=== PATIENT | male | born 1945 | race Caucasian/White ===

== ENCOUNTER 2019-12-03 17:59 | Inpatient (IN) | payer OTHER ==
[~2019-12-03] VITALS: Ht 170.2 cm; Wt 80.2 kg
[2019-12-03] MEDS ORDERED: ACETAMINOPHEN 325 MG TAB PO ONE ×2 (18:18→18:30)
[2019-12-03] MEDS ORDERED: ACCU-CHEK COMFORT CURVE STRIP VI ONE (18:45)
[2019-12-03] MEDS ORDERED: SODIUM CHLORIDE 0.9% 2,000 ML IV ONE (18:45)
[2019-12-03] MEDS ORDERED: PIPERACILLIN-TAZOB 3.375GM 100 ML IV ONE (19:00)
[2019-12-03] MEDS ORDERED: VANCOMYCIN 1GM/250ML 250 ML IV ONE (19:00)
[2019-12-03 19:34] LABS: Basophils # (auto) 0 10 ^3/uL (0-0.2); Basophils % (auto) 0.4 % (0.0-2.0); Eosinophils # (auto) 0 10 ^3/uL (0-0.8); Eosinophils % (auto) 0.1 % (0.0-7.0); Hematocrit 44.6 % (41.0-53.0); Hemoglobin 14.9 g/dL (13.5-17.5); Lymphocytes # (auto) 0.3 10 ^3/uL (0.4-5.4); Lymphocytes % (auto) 2.9 % (10.0-50.0); Mean Corpuscular Hemoglobin 30.6 pg (28.0-32.0); Mean Corpuscular Hgb Conc. 33.5 g/dL (32.0-36.0); Mean Corpuscular Volume 91.4 fL (80.0-100.0); Monocytes # (auto) 0.4 10 ^3/uL (0-1.3); Monocytes % (auto) 4.4 % (0.0-12.0); Neutrophils # (auto) 8.7 10 ^3/uL (1.6-8.6); Neutrophils % (auto) 92.2 % (37.0-80.0); Nucleated Red Blood Cells % 0.1 %; Platelet Count (auto) 170 10^3/uL (140-450); Red Blood Cells 4.88 10^6/uL (4.5-5.90); Red Cell Distribution Width 13.3 % (11.8-14.3); White Blood Cell 9.4 10^3/uL (4.4-10.8)
[2019-12-03 19:51] LABS: Acetaminophen < 2.0 ug/mL (10-30); Alanine Aminotransferase 18 U/L (16-61); Albumin 2.9 g/dL (3.4-5.0); Anion Gap 7 (5-15); Blood Urea Nitrogen 20 mg/dL (7-18); Calcium 8.4 mg/dL (8.5-10.1); Carbon Dioxide 27 mmol/L (21-32); Chloride 96 mmol/L (98-107); Glucose 119 mg/dL (74-106); Potassium 4.1 mmol/L (3.5-5.1); Salicylate < 1.7 mg/dL (2.8-20.0); Sodium 130 mmol/L (136-145)
[2019-12-03 19:56] LABS: Alkaline Phosphatase 52 U/L (45-117); Aspartate Aminotransferase 24 U/L (15-37); BUN/Creatinine Ratio 12.5; Bilirubin, Total 0.9 mg/dL (0.2-1.0); GFR African American 55 mL/min; GFR Non-African American 45 mL/min; INR 1.06 (0.9-1.15); Partial Thromboplastin Time 29.3 sec (23.0-31.2)
[2019-12-03] MEDS ORDERED: MORPHINE SULF INJ 2 MG/ML SYRINGE 1ML IV PRN (21:30)
[2019-12-03] MEDS ORDERED: ACETAMINOPHEN 325 MG TAB PO PRN (21:30)
[2019-12-03] MEDS ORDERED: NITROGLYCERIN 0.4 MG SL TAB SL PRN (21:30)
[2019-12-03] MEDS ORDERED: ONDANSETRON HCL 4 MG/2 ML VIAL IV PRN (21:30)
[2019-12-03 22:35] LABS: Magnesium 2.2 mg/dL (1.6-2.6)
[2019-12-03 22:43] LABS: Lactate Dehydrogenase 299 U/L (87-241)
[2019-12-03 22:50] LABS: CRP High Sensitivity > 19.0 mg/dL (< 0.3)
[2019-12-03 23:53] LABS: Urine Bacteria FEW /hpf (None Seen); Urine Blood 2+ /uL (Negative); Urine Mucus FEW (None Seen); Urine Specific Gravity 1.018 (1.001-1.035); Urine WBC 2 /hpf (0 - 3)
[2019-12-04] VITALS (10 sets, daily range): BP systolic 95–158; BP diastolic 54–88
[2019-12-04 00:04] LABS: Alcohol, Urine < 3.0 mg/dL (0-10); Amphetamine Screen, Urine NEGATIVE (NEGATIVE); Barbiturate Scree,Urine NEGATIVE (NEGATIVE); Benzodiazephine Screen, Urine NEGATIVE (NEGATIVE); Cannabinoid Screen, Urine NEGATIVE (NEGATIVE); Cocaine Screen, Urine NEGATIVE (NEGATIVE); Opiate Scree,Urine NEGATIVE (NEGATIVE); Phencyclidine Screen, Urine NEGATIVE (NEGATIVE)
--- NOTE | 2019-12-04 00:30 | NUR ---
Telemetry admit from ER JOSÉ MIGUELCHRISTY admitted to Telemetry unit after SBAR received. Patient oriented to LJ MILTON RN primary RN, unit, room, bed, and unit policies regarding patient care and visiting hours. Patient now on continuous telemetry monitoring, tele box # 18 and telemetry reading on arrival to unit is Sinus rhythm at 86BPM. Patient placed on bedside oxygen, weighed by bedscale and encouraged to call if they need something. All questions and concerns addressed, patient verbalized understanding. Patient is alert and oriented to self, confused and very weak with shakey legs when standing up. Has a mercado catheter draining clear light guadalupe urine into drain bag. Resting in bed at this time.
--- NOTE | 2019-12-04 01:00 | NUR ---
Patient is restless and tries to get up and walk, but patient is very unstable to his feet. Will probably needs a sitter. Will let the charge nurse know.
--- NOTE | 2019-12-04 01:15 | NUR ---
Patient is with a sitter for safety precaution.
[2019-12-04] MEDS: DOXYCYCLINE 100MG/250ML 250 ML IV SCH ×3 (02:16→21:31)
[2019-12-04] MEDS ORDERED: PRA1C PO (04:11)
[2019-12-04] MEDS ORDERED: CARV3.1240 PO (04:11)
[2019-12-04] MEDS ORDERED: LISI2.5T47 PO (04:11)
[2019-12-04] MEDS ORDERED: VENL37.511 PO (04:11)
[2019-12-04] MEDS ORDERED: MELA3TAB27 PO (04:11)
[2019-12-04] MEDS ORDERED: SIMV-13 PO (04:11)
[2019-12-04] MEDS ORDERED: TERA10CA PO (04:11)
[2019-12-04 07:24] LABS: Basophils # (auto) 0 10 ^3/uL (0-0.2); Basophils % (auto) 0.3 % (0.0-2.0); Eosinophils # (auto) 0 10 ^3/uL (0-0.8); Hematocrit 48.1 % (41.0-53.0); Hemoglobin 16.3 g/dL (13.5-17.5); Lymphocytes # (auto) 0.2 10 ^3/uL (0.4-5.4); Lymphocytes % (auto) 1.9 % (10.0-50.0); Mean Corpuscular Hgb Conc. 33.8 g/dL (32.0-36.0); Mean Corpuscular Volume 91.8 fL (80.0-100.0); Monocytes # (auto) 0.4 10 ^3/uL (0-1.3); Neutrophils # (auto) 8.9 10 ^3/uL (1.6-8.6); Neutrophils % (auto) 93.8 % (37.0-80.0); Nucleated Red Blood Cells % 0.1 %; Platelet Count (auto) 189 10^3/uL (140-450); Red Blood Cells 5.24 10^6/uL (4.5-5.90); Red Cell Distribution Width 13.2 % (11.8-14.3); White Blood Cell 9.4 10^3/uL (4.4-10.8)
[2019-12-04 07:45] LABS: Albumin 2.8 g/dL (3.4-5.0); Calcium 8.5 mg/dL (8.5-10.1); Potassium 3.8 mmol/L (3.5-5.1)
[2019-12-04 07:46] LABS: Total Protein 7.2 g/dL (6.4-8.2)
[2019-12-04] MEDS: ZINC SULFATE 220mg CAP or TAB PO SCH (09:22)
[2019-12-04] MEDS: ASCORBIC ACID 1,000 MG TAB PO SCH (09:23)
[2019-12-04] MEDS: ENOXAPARIN SOD 40 MG/0.4 ML SYRINGE SC SCH (09:23)
[2019-12-04] MEDS: CHOLECALCIFEROL (VITD3) 2,000 UNIT CAP PO SCH (09:23)
[2019-12-04] MEDS: PANTOPRAZOLE 40 MG TAB PO SCH (09:23)
--- NOTE | 2019-12-04 12:30 | NUR ---
Patient 02 saturation on room air Patients 02 saturation on room air is 90%. Reapplied NC @ 4L, 02 at 96%.
--- NOTE | 2019-12-04 13:41 | NUR ---
Remdesivir Consent Obtained consent for Remdesivir over phone with patients spouse, Roseanne, due to patient being confused. Reviewed risks/benefits of Remdesivir and answered questions. Consent faxed to pharmacy and consent placed in patient chart.
[2019-12-04] MEDS ORDERED: DexAMETHasone SOD PHOS 10MG/1ML VIAL INJ IV ONE (15:15)
[2019-12-04] MEDS ORDERED: REMDESIVIR 200 MG in NS 210ml LOADING DOSE ADULT IV ONE (17:00)
--- NOTE | 2019-12-04 17:15 | NUR ---
Elevated Temp Patients temp is 102.8. Cooling measures initiated, and Tylenol given. Will continue to monitor.
--- NOTE | 2019-12-04 18:28 | NUR ---
Paged Hospitalist, patients temp is 102.7 after receiving Tylenol and cooling measures.
--- NOTE | 2019-12-04 18:30 | NUR ---
Paged Hospitalist, Dr Limon, informed him of patients continued temp of 102.7. Per Dr Limon, continue cooling measures, no further orders.
--- NOTE | 2019-12-04 18:55 | NUR ---
Convalescent Plasma Consent Convalescent Plasma consent has been obtained over the phone by patients , Roseanne due to patient being confused. Consent has been signed and verified by 2 RN's after speaking with Roseanne. Signed consent in patient chart.
--- NOTE | 2019-12-04 19:30 | NUR ---
Opening Shift Note Assumed care of patient, awake and alert. No S/S of distress/SOB or pain. Insructed on POC and to callfor assist PRN, will continue to monitor for changes Q1hr and PRN. Fall and safety precautions in place. Call light within reach. line service attendant at bedside for patient safety.
[2019-12-04] MEDS: ATORVASTATIN 20 MG TAB PO SCH (21:31)
[2019-12-04] MEDS: VENLAFAXINE HCL 37.5mg XR cap PO SCH (21:31)
[2019-12-04] MEDS: BUDESONIDE (INHALATION) 180 MCG IH IN SCH (22:25)
[2019-12-04] MEDS: ALBUTEROL SULF HFA 90MCG INH 200DOSE IN SCH (22:25)
[2019-12-05 05:00] VITALS: BP 108/59
[2019-12-05] MEDS: ALBUTEROL SULF HFA 90MCG INH 200DOSE IN SCH ×3 (07:37→22:00)
[2019-12-05] MEDS: BUDESONIDE (INHALATION) 180 MCG IH IN SCH ×2 (07:37→22:00)
[2019-12-05 07:40] LABS: Calcium 8.6 mg/dL (8.5-10.1); Potassium 4.4 mmol/L (3.5-5.1)
[2019-12-05 07:44] LABS: BUN/Creatinine Ratio 17.6
--- NOTE | 2019-12-05 07:45 | NUR ---
Opening shift note Assumed care of patient from NOC RN Joselyn. Patient is AOX2 no s/s of distress noted. Bed is in lowest locked position, side rails up x2,aviation safety equipment technician at bedside and call light is within reach. Updated patient on plan of care and patient verbalized understanding but reinforcement is needed. Will continue to monitor q1hr and PRN.
[2019-12-05 09:00] VITALS: BP 112/68
[2019-12-05] MEDS: DexAMETHasone SOD PHOS 10MG/1ML VIAL INJ IV SCH (11:29)
[2019-12-05] MEDS: DOXYCYCLINE 100MG/250ML 250 ML IV SCH ×2 (11:29→21:31)
[2019-12-05] MEDS: PANTOPRAZOLE 40 MG TAB PO SCH (11:37)
[2019-12-05] MEDS: ASCORBIC ACID 1,000 MG TAB PO SCH (11:37)
[2019-12-05] MEDS: CHOLECALCIFEROL (VITD3) 2,000 UNIT CAP PO SCH (11:37)
[2019-12-05] MEDS: ENOXAPARIN SOD 40 MG/0.4 ML SYRINGE SC SCH (11:37)
[2019-12-05] MEDS: ZINC SULFATE 220mg CAP or TAB PO SCH (11:37)
--- NOTE | 2019-12-05 13:15 | NUR ---
Physician rounding. Dr. Barone at bedside. Updated MD on patient status. No new orders received, will continue to monitor.
[2019-12-05] MEDS ORDERED: THROAT LOZENGES(CEPASTAT) MT PRN (16:15)
[2019-12-05] MEDS: REMDESIVIR 100mg in NS 230ml DAILYx4DAYS (NO VENT) IV SCH (17:49)
--- NOTE | 2019-12-05 18:45 | NUR ---
Mel vitals pre administration 70bpm, 127/75. 15min after administration 71bpm, 126/72 post administration 121/72, 75bpm No s/s of distress or SOB noted. Will continue to monitor. Educated patient to call for assistance as needed.
--- NOTE | 2019-12-05 19:15 | NUR ---
end of shift note endorsed care to NOC MERON Zamorano. No s/s of distress noted.
--- NOTE | 2019-12-05 19:35 | NUR ---
Opening shift note Assumed care of patient. Patient is AOX3 no s/s of distress noted. Bed is in lowest locked position, side rails up x2, sitter at bedside and call light is within reach. Updated patient on plan of care and patient verbalized understanding but reinforcement is needed.
[2019-12-05] MEDS: VENLAFAXINE HCL 37.5mg XR cap PO SCH (21:31)
[2019-12-05] MEDS: ATORVASTATIN 20 MG TAB PO SCH (21:31)
[2019-12-05 22:00] VITALS: BP 144/81
[2019-12-06 04:15] VITALS: BP 134/71
[2019-12-06] MEDS: ALBUTEROL SULF HFA 90MCG INH 200DOSE IN SCH ×3 (07:27→21:31)
[2019-12-06] MEDS: BUDESONIDE (INHALATION) 180 MCG IH IN SCH ×2 (07:27→21:32)
[2019-12-06 09:00] VITALS: BP 115/71
[2019-12-06] MEDS: DexAMETHasone SOD PHOS 10MG/1ML VIAL INJ IV SCH (10:17)
[2019-12-06] MEDS: ZINC SULFATE 220mg CAP or TAB PO SCH (10:17)
[2019-12-06] MEDS: DOXYCYCLINE 100MG/250ML 250 ML IV SCH ×2 (10:17→22:10)
[2019-12-06] MEDS: ASCORBIC ACID 1,000 MG TAB PO SCH (10:17)
[2019-12-06] MEDS: PANTOPRAZOLE 40 MG TAB PO SCH (10:18)
[2019-12-06] MEDS: CHOLECALCIFEROL (VITD3) 2,000 UNIT CAP PO SCH (10:18)
[2019-12-06] MEDS: ENOXAPARIN SOD 40 MG/0.4 ML SYRINGE SC SCH (10:18)
[2019-12-06 13:00] VITALS: BP 113/63
--- NOTE | 2019-12-06 14:48 | NUR ---
Nutrition Assessment Notes Please refer to link for full assessment notes. Est Energy needs: 0519-1723 kcals (20-23 kcal/kgBW) Est Protein needs: 82-90 gms/day (1.0-1.1 gm/kgBW) Will continue to monitor and reassess prn. Addendum: 12/06/19 at [address] Amended: Links added.
[2019-12-06 17:00] VITALS: BP 115/66
[2019-12-06] MEDS: REMDESIVIR 100mg in NS 230ml DAILYx4DAYS (NO VENT) IV SCH (17:29)
[2019-12-06 22:00] VITALS: BP 120/68
[2019-12-06] MEDS: VENLAFAXINE HCL 37.5mg XR cap PO SCH (22:09)
[2019-12-06] MEDS: ATORVASTATIN 20 MG TAB PO SCH (22:09)
[2019-12-06] MEDS: TEMAZEPAM 15 MG CAP PO PRN (23:56)
[2019-12-07] VITALS (9 sets, daily range): BP systolic 107–132; BP diastolic 65–76
--- NOTE | 2019-12-07 01:16 | NUR ---
Patient pulled out Dupont: Patient confused and pulled out Dupont while assisting patient to sit up in the bed. Catheter of Dupont tip present. Will reassess patient for need for Dupont.
[2019-12-07] MEDS: ALBUTEROL SULF HFA 90MCG INH 200DOSE IN SCH ×4 (07:02→22:37)
[2019-12-07] MEDS: BUDESONIDE (INHALATION) 180 MCG IH IN SCH ×3 (07:03→22:38)
--- NOTE | 2019-12-07 07:10 | NUR ---
received pt on 6liters nasal cannula, spo2 86%. switched pt to 12 liters oxymizer, spo2 increased to 92%. sitter at bedside. pt continuously taking off o2. pt educated to keep oxygen on. sitter at bedside helping to keep o2 on pt.
[2019-12-07 07:38] LABS: Hematocrit 40.9 % (41.0-53.0); Mean Corpuscular Hemoglobin 30.9 pg (28.0-32.0); Mean Corpuscular Hgb Conc. 34.2 g/dL (32.0-36.0); Mean Corpuscular Volume 90.3 fL (80.0-100.0); Platelet Count (auto) 245 10^3/uL (140-450); Red Blood Cells 4.52 10^6/uL (4.5-5.90); White Blood Cell 10.9 10^3/uL (4.4-10.8)
[2019-12-07 07:51] LABS: Band Neutrophils % (manual) 0; Basophils % (manual) 0 (0.0-2.0); Blast Cells 0; Eosinophils % (manual) 0 (0-7); Metamyelocytes % 0; Myelocytes % 0; Promyelocytes % 0; Reactive Lymphocytes 0
[2019-12-07 08:02] LABS: Albumin 2.4 g/dL (3.4-5.0); BUN/Creatinine Ratio 23.7; Bilirubin, Total 0.5 mg/dL (0.2-1.0); Calcium 8.2 mg/dL (8.5-10.1); Total Protein 5.9 g/dL (6.4-8.2)
[2019-12-07 08:10] LABS: Lymphocytes % (manual) 10 (10.0-50.0); Monocytes % (manual) 3 (0-12)
[2019-12-07] MEDS: ZINC SULFATE 220mg CAP or TAB PO SCH (09:08)
[2019-12-07] MEDS: DOXYCYCLINE 100MG/250ML 250 ML IV SCH ×2 (09:08→21:34)
[2019-12-07] MEDS: ENOXAPARIN SOD 40 MG/0.4 ML SYRINGE SC SCH (09:09)
[2019-12-07] MEDS: PANTOPRAZOLE 40 MG TAB PO SCH (09:09)
[2019-12-07] MEDS: ASCORBIC ACID 1,000 MG TAB PO SCH (09:09)
[2019-12-07] MEDS: CHOLECALCIFEROL (VITD3) 2,000 UNIT CAP PO SCH (09:09)
[2019-12-07] MEDS: DexAMETHasone SOD PHOS 10MG/1ML VIAL INJ IV SCH (09:11)
[2019-12-07] MEDS ORDERED: guaiFENesin-DM 100/10mg/5ml SYR PO PRN (15:00)
--- NOTE | 2019-12-07 15:09 | NUR ---
PAGED MD SLOAN RE: PT REQUESTING COUGH MEDICINE. AWAITING CALL BACK
--- NOTE | 2019-12-07 15:13 | NUR ---
ME RETURNED PAGE. NEW ORDERS RECEIVED. WILL IMPLEMENT NEW ORDERS PER PROTOCAL
--- NOTE | 2019-12-07 16:08 | NUR ---
Opening shift note Assumed care of patient. Patient is AOX3 no s/s of distress noted. Patient currently on 11L oxymizer. Bed is in lowest locked position, side rails up x2, sitter at bedside and call light is within reach. Updated patient on plan of care and patient verbalized understanding but reinforcement is needed. Addendum: 12/07/19 at 1609 by SUBHASH DOUGLASS RN RN incorrect time: correct time 0740
[2019-12-07] MEDS: REMDESIVIR 100mg in NS 230ml DAILYx4DAYS (NO VENT) IV SCH (17:46)
--- NOTE | 2019-12-07 18:31 | NUR ---
LATE ENTRY REMDESIVIR PRE INFUSION VITAL SIGNS BP119/81 HR 66 REMDESIVIR INFUSION VITAL SIGNS BP111/56 HR 67 REMDESIVIR POST INFUSION VITAL SIGNS BP107/59 HR 61
[2019-12-07] MEDS: TEMAZEPAM 15 MG CAP PO PRN (21:34)
[2019-12-07] MEDS: VENLAFAXINE HCL 37.5mg XR cap PO SCH (21:34)
[2019-12-07] MEDS: ATORVASTATIN 20 MG TAB PO SCH (21:34)
[2019-12-08 05:01] VITALS: BP 125/68
[2019-12-08] MEDS: BUDESONIDE (INHALATION) 180 MCG IH IN SCH ×2 (06:54→23:06)
[2019-12-08] MEDS: ALBUTEROL SULF HFA 90MCG INH 200DOSE IN SCH ×3 (06:54→23:06)
--- NOTE | 2019-12-08 06:54 | NUR ---
RT NOTE: FLOW DECREASED TO 7L OXYMIZER. SPO2 STILL HOLDING 95-96%. WILL CONTINUE TO MONITOR.
--- NOTE | 2019-12-08 07:20 | NUR ---
CLOSING SHIFT NOTE ENDORSED CARE TO DAY SHIFT RN. PATIENT HAS NO S/S OF DISTRESS/SOB OR PAIN AT THIS TIME
--- NOTE | 2019-12-08 07:45 | NUR ---
Opening shift note Assumed care of patient. Patient is AOX3 no s/s of distress noted. Patient currently on 11L oxymizer. Bed is in lowest locked position, side rails up x2, sitter at bedside and call light is within reach. Updated patient on plan of care and patient verbalized understanding but reinforcement is needed.
[2019-12-08 09:00] VITALS: BP 101/74
[2019-12-08] MEDS: PANTOPRAZOLE 40 MG TAB PO SCH (11:06)
[2019-12-08] MEDS: ZINC SULFATE 220mg CAP or TAB PO SCH (11:07)
[2019-12-08] MEDS: DOXYCYCLINE 100MG/250ML 250 ML IV SCH (11:07)
[2019-12-08] MEDS: ASCORBIC ACID 1,000 MG TAB PO SCH (11:07)
[2019-12-08] MEDS: DexAMETHasone SOD PHOS 10MG/1ML VIAL INJ IV SCH (11:07)
[2019-12-08] MEDS: ENOXAPARIN SOD 40 MG/0.4 ML SYRINGE SC SCH (11:07)
[2019-12-08] MEDS: CHOLECALCIFEROL (VITD3) 2,000 UNIT CAP PO SCH (11:07)
--- NOTE | 2019-12-08 11:44 | NUR ---
PATIENT TITRATED TO 5L OXYMIZER PT SPO2 HOLDING AT 95% WILL CONTINUE TO MONITOR
[2019-12-08] MEDS ORDERED: POTASSIUM CHL 10 Meq TABLET PO ONE (11:45)
[2019-12-08] MEDS ORDERED: FUROSEMIDE 20 MG/2 ML VIAL IV ONE (11:45)
[2019-12-08 13:00] VITALS: BP 100/61
--- NOTE | 2019-12-08 15:22 | NUR ---
IV insertion IV access obtained, via clean sterile technique by inserting 20 gauge catheter at LEFT FOREARM after 1 attempt(s). IV secured properly. No trauma to site. Patient tolerated well. IV removal IV TO THE RIGHT WRIST DC'd with clean sterile technique, catheter fully intact. Pressure dressing applied to site. Patient tolerated well. IV removal IV TO THE RIGHT FOREARM DC'd with clean sterile technique, catheter fully intact. Pressure dressing applied to site. Patient tolerated well.
[2019-12-08 16:49] VITALS: BP 121/75
[2019-12-08] MEDS: REMDESIVIR 100mg in NS 230ml DAILYx4DAYS (NO VENT) IV SCH (17:02)
--- NOTE | 2019-12-08 17:02 | NUR ---
REMDESIVIR PRE INFUSION VITAL SIGNS BP121/67 HR 63
--- NOTE | 2019-12-08 17:07 | NUR ---
assessment Patient is a 74 year old male who is in the covid unit. Per patients Kasandra prior to admission patient lived home with elise an functioned independently. Patient has a fww for home use, but does not need to use it. Patients PCP is Dr Alaniz in [place]. Kasandra informed me patient became confused and very weak so she called 911 and patient was admitted. Kasandra informed me that the family all tested positive except for her oldest son. Kasandra has refused SNF for patient. Per Kasandra patient is to return home on discharge with home health for physical therapy. I informed Kasandra I will continue to monitor and follow up as appropriate. Kasandra verbalized understanding and agreed to discharge plan home. Addendum: 12/08/19 at 1712 by Latisha HERNANDEZ Amended: Links added.
[2019-12-08 22:00] VITALS: BP 115/70
[2019-12-08] MEDS: ATORVASTATIN 20 MG TAB PO SCH (22:38)
[2019-12-08] MEDS: VENLAFAXINE HCL 37.5mg XR cap PO SCH (22:38)
[2019-12-09 01:40] VITALS: BP 115/70
[2019-12-09 05:00] VITALS: BP 121/65
[2019-12-09 06:44] LABS: Hematocrit 41.2 % (41.0-53.0); Hemoglobin 14.2 g/dL (13.5-17.5); Mean Corpuscular Hemoglobin 31.3 pg (28.0-32.0); Mean Corpuscular Hgb Conc. 34.6 g/dL (32.0-36.0); Mean Corpuscular Volume 90.6 fL (80.0-100.0); Platelet Count (auto) 286 10^3/uL (140-450); Red Blood Cells 4.55 10^6/uL (4.5-5.90); Red Cell Distribution Width 13.1 % (11.8-14.3)
[2019-12-09 06:53] LABS: Basophils % (manual) 0 (0.0-2.0); Blast Cells 0; Promyelocytes % 0; Reactive Lymphocytes 0
--- NOTE | 2019-12-09 06:54 | NUR ---
CLOSING SHIFT NOTE WILL ENDORSED CARE TO DAY SHIFT RN. PATIENT HAS NO S/S OF DISTRESS/SOB OR PAIN AT THIS TIME
[2019-12-09 07:01] LABS: Calcium 8.4 mg/dL (8.5-10.1)
[2019-12-09 07:09] LABS: Albumin 2.5 g/dL (3.4-5.0); BUN/Creatinine Ratio 25.7; Bilirubin, Total 0.5 mg/dL (0.2-1.0); Total Protein 5.9 g/dL (6.4-8.2)
[2019-12-09] MEDS: ALBUTEROL SULF HFA 90MCG INH 200DOSE IN SCH ×2 (07:12→14:47)
[2019-12-09] MEDS: BUDESONIDE (INHALATION) 180 MCG IH IN SCH (07:12)
--- NOTE | 2019-12-09 07:31 | NUR ---
Opening shift note Assumed care of patient. Patient is AOX3 no s/s of distress noted. Patient currently on 5L oxymizer. Bed is in lowest locked position, side rails up x2, sitter at bedside and call light is within reach. Updated patient on plan of care and patient verbalized understanding but reinforcement is needed. Addendum: 12/09/19 at 0732 by SUBHASH DOUGLASS RN RN NO SITTER AT BEDSIDE. SITTER D/C'D
[2019-12-09] MEDS: ASCORBIC ACID 1,000 MG TAB PO SCH (07:59)
[2019-12-09] MEDS: DexAMETHasone SOD PHOS 10MG/1ML VIAL INJ IV SCH (07:59)
[2019-12-09] MEDS: ENOXAPARIN SOD 40 MG/0.4 ML SYRINGE SC SCH (08:00)
[2019-12-09] MEDS: CHOLECALCIFEROL (VITD3) 2,000 UNIT CAP PO SCH (08:00)
[2019-12-09] MEDS: ZINC SULFATE 220mg CAP or TAB PO SCH (08:00)
[2019-12-09] MEDS: PANTOPRAZOLE 40 MG TAB PO SCH (08:00)
[2019-12-09 08:18] LABS: Band Neutrophils % (manual) 5; Eosinophils % (manual) 1 (0-7); Lymphocytes % (manual) 3 (10.0-50.0); Metamyelocytes % 3; Monocytes % (manual) 4 (0-12); Myelocytes % 1
[2019-12-09 08:51] VITALS: BP 113/75
[2019-12-09] MEDS ORDERED: FUROSEMIDE 20 MG/2 ML VIAL IV SCH (10:00)
[2019-12-09] MEDS ORDERED: POTASSIUM CHL 10 Meq TABLET PO SCH (10:00)
--- NOTE | 2019-12-09 11:32 | NUR ---
Nutrition Followup Notes Wt: 80.2 kg Pt is COVID positive. Pt is currently on cardiac diet with inadequate PO of 50% x 5 per RN doc Est Energy needs: 1917-8940 kcals (20-23 kcal/kgBW), Est Protein needs: 82-90 gms/day (1.0-1.1 gm/kgBW). Will continue to monitor and reassess prn. Labs: GLU 108 H ALB 2.5 L BUN 29 H BM: Pt had 1 BM today per RN note. Skin: BS 20 low risk, full details in director day care center note. PES: 1) Inadequate oral intake aeb ave 37% PO intake over 4 meals r/t pt with a poor appetite 2) Altered nutrition related lab values aeb elev RFTs, low GFR, hyperglycemia, hypoalbuminemia r/t current/chronic medical condition Comments: Will continue to monitor po intake, skin status, pertinent labs and weight trends. F/u high 3-5 days 1) Consider Ensure enlive 1 carton bid if PO remains low. 2) Continue current plan of care
[2019-12-09] MEDS ORDERED: FURO20TA3 PO (12:23)
[2019-12-09] MEDS ORDERED: DEXT1SYP9 PO (12:23)
[2019-12-09] MEDS ORDERED: AZIT250T8 PO (12:23)
[2019-12-09] MEDS ORDERED: METH4PAK PO (12:23)
[2019-12-09] MEDS ORDERED: ASCO10003 PO (12:23)
[2019-12-09] MEDS ORDERED: POTA-167 PO (12:23)
[2019-12-09] MEDS ORDERED: ASPI81CH43 PO (12:23)
[2019-12-09] MEDS ORDERED: ZINCCAP PO (12:23)
[2019-12-09] MEDS ORDERED: ALBUAER3 IN (12:23)
[2019-12-09] MEDS ORDERED: PANT40T PO (12:23)
[2019-12-09] MEDS ORDERED: AZITHROMYCIN 250 MG TAB PO ONE (12:30)
[2019-12-09 12:58] VITALS: BP 116/68
[2019-12-09 13:00] VITALS: BP 113/75
[2019-12-09 14:33] VITALS: BP 113/75
--- NOTE | 2019-12-09 15:10 | NUR ---
Opening Shift Note Assumed care of patient, awake and alert. No S/S of distress/SOB or pain. Instructed on POC and to call for assist PRN, will continue to monitor for changes Q1hr and PRN. Bed side rails up x 2, Bed locked in lowest position, HOB elevated at least 30 degrees and call light is within reach.
--- NOTE | 2019-12-09 15:31 | NUR ---
PATIENT UNABLE TO SIGN DISCHARGE PAPERS DUE TO COVID 19. INFORMED FAMILY MEMBER OF ALL DISCHARGE INFORMATION AND PAPERWORK.
--- NOTE | 2019-12-09 16:00 | NUR ---
Discharge instructions given as ordered. Encourage to follow up with PMD as instructed. All questions and concerns addressed. Patient verbalized understanding. Medication reconciliation form completed and copy given to patient. Home medications held in Pharmacy returned to patient. IV removed with catheter intact, pressure dressing applied. Telemetry unit returned to ICU. Patient taken to vehicle via wheelchair with all personal belongings, accompanied by staff and family member. No distress noted at time of departure.
== END 2019-12-09 14:00 | disposition home or self-care (01) | DRG 871 ==
LOC: EDBD 17:59 → ER 18:01 → TELE 18:02 → TELE-EAST 12-04 00:50 → TELE-E-ADS 12-06 22:07 → TELE-EAST 12-09 00:05
PROVIDERS: ADMIT Nurse Practitioner; ATTEND Internal Medicine
PROC: XW033E5 Introduction of Remdesivir Anti-infective into Peripheral Vein, Percutaneous Approach, New Technology Group 5 (ICD-10-PCS; principal; 2019-12-04)
PROC: XW033E5 Introduction of Remdesivir Anti-infective into Peripheral Vein, Percutaneous Approach, New Technology Group 5 (ICD-10-PCS; 2019-12-05)
PROC: XW13325 Transfusion of Convalescent Plasma (Nonautologous) into Peripheral Vein, Percutaneous Approach, New Technology Group 5 (ICD-10-PCS; 2019-12-07)
DX: A41.89 Other specified sepsis (principal); U07.1 COVID-19; J12.89 Other viral pneumonia; J96.01 Acute respiratory failure with hypoxia; G93.41 Metabolic encephalopathy; N17.0 Acute kidney failure with tubular necrosis; J15.6 Pneumonia due to other Gram-negative bacteria; E44.0 Moderate protein-calorie malnutrition; F03.90 Unspecified dementia, unspecified severity, without behavioral disturbance, psychotic disturbance, mood disturbance, and anxiety; I12.9 Hypertensive chronic kidney disease with stage 1 through stage 4 chronic kidney disease, or unspecified chronic kidney disease; N18.3 Chronic kidney disease, stage 3 (moderate); E78.5 Hyperlipidemia, unspecified; I25.2 Old myocardial infarction; I51.7 Cardiomegaly
CPT/HCPCS: 36415; 36600; 70450; 71045; 80048; 80053; 80307; 80320; 80329; 81001; 82728; 82805; 82962; 83605; 83615; 83735; 83880; 84443; 84484; 85007; 85025; 85027; 85379; 85610; 85730; 86141; 86850; 86900; 86901; 87040; 87086; 87426; 93005; 94640; 97110; 97116; 97163; 97530; 99291; G0378; J1100; J2543; J3490

== ENCOUNTER 2020-02-16 07:03 | Emergency (ER) | payer OTHER ==
[~2020-02-16] VITALS: Ht 172.7 cm; Wt 83.9 kg
[~2020-02-16 07:03] MED LIST: ALBUAER3 IN; ASCO10003 PO; ASPI81CH43 PO; AZIT250T8 PO; CARV3.1240 PO; DEXT1SYP9 PO; FURO20TA3 PO; LISI2.5T47 PO; MELA3TAB27 PO; METH4PAK PO; PANT40T PO; POTA-167 PO; PRA1C PO; SIMV-13 PO; TERA10CA PO; VENL37.511 PO; ZINCCAP PO
[2020-02-16 07:15] VITALS: BP 157/79
== END 2020-02-16 08:01 | disposition left against medical advice (07) ==
LOC: ER 07:03
DX: J06.9 Acute upper respiratory infection, unspecified (principal); F41.9 Anxiety disorder, unspecified; F03.90 Unspecified dementia, unspecified severity, without behavioral disturbance, psychotic disturbance, mood disturbance, and anxiety; I10 Essential (primary) hypertension; I25.2 Old myocardial infarction
CPT/HCPCS: 93005

== ENCOUNTER 2022-12-08 20:46 | Inpatient (IN) | payer OTHER ==
[~2022-12-08] VITALS: Ht 180.3 cm; Wt 77.2 kg
[~2022-12-08 20:46] MED LIST changes: +AZIT-81 PO; -AZIT250T8 PO; -POTA-167 PO; +POTA-211 PO; -SIMV-13 PO; +SIMV40TA18 PO; +VENL1TAB97 PO; -VENL37.511 PO
[2022-12-08 21:57] LABS: Basophils # (auto) 0.1 10 ^3/uL (0-0.2); Basophils % (auto) 0.5 % (0.0-2.0); Eosinophils # (auto) 0 10 ^3/uL (0-0.8); Eosinophils % (auto) 0.2 % (0.0-7.0); Hematocrit 48.6 % (41.0-53.0); Hemoglobin 16.8 g/dL (13.5-17.5); Lymphocytes # (auto) 0.6 10 ^3/uL (0.4-5.4); Lymphocytes % (auto) 4.7 % (10.0-50.0); Mean Corpuscular Hemoglobin 31.4 pg (28.0-32.0); Mean Corpuscular Hgb Conc. 34.5 g/dL (32.0-36.0); Mean Corpuscular Volume 91.1 fL (80.0-100.0); Monocytes # (auto) 0.5 10 ^3/uL (0-1.3); Monocytes % (auto) 3.8 % (0.0-12.0); Neutrophils # (auto) 12.6 10 ^3/uL (1.6-8.6); Neutrophils % (auto) 90.8 % (37.0-80.0); Red Blood Cells 5.34 10^6/uL (4.5-5.90); Red Cell Distribution Width 13.5 % (11.8-14.3); White Blood Cell 13.8 10^3/uL (4.4-10.8)
[2022-12-08 22:29] LABS: Partial Thromboplastin Time 42.3 SEC (24.5-34.5)
[2022-12-08 22:37] LABS: INR 4.07 (0.9-1.15)
[2022-12-08 22:42] LABS: Albumin 3.6 g/dL (3.4-5.0); Calcium 8.7 mg/dL (8.5-10.1); Magnesium 2.9 mg/dL (1.6-2.6); Potassium 4.8 mmol/L (3.5-5.1)
[2022-12-08 22:46] LABS: BUN/Creatinine Ratio 18.6 (10.0-20.0); Bilirubin, Total 0.8 mg/dL (0.2-1.0); Total Protein 7.2 g/dL (6.4-8.2)
[2022-12-09] MEDS ORDERED: SODIUM CHLORIDE 0.9% 1,000 ML IV ONE (00:30)
[2022-12-09] MEDS ORDERED: ACETAMINOPHEN 325 MG TAB PO PRN (01:00)
[2022-12-09] MEDS ORDERED: HYDROcodone-ACET 5/325MG TAB PO PRN (01:00)
[2022-12-09] MEDS ORDERED: ONDANSETRON HCL 4 MG/2 ML VIAL IV PRN (01:00)
[2022-12-09] MEDS ORDERED: DOCUSATE SOD 100 MG CAP PO PRN (01:00)
[2022-12-09] MEDS ORDERED: MORPHINE SULFATE INJ 2 MG/ml SYRG IV PRN (01:15)
[2022-12-09] MEDS ORDERED: NITROGLYCERIN 0.4 MG SL TAB SL PRN (01:15)
[2022-12-09 03:00] VITALS: PULSE 63; RESP 63; O2SAT 93
[2022-12-09] MEDS: SODIUM CHLORIDE 0.9% 1,000 ML IV SCH ×2 (03:04→17:58)
[2022-12-09] MEDS ORDERED: WARF-112 PO (03:34)
[2022-12-09] MEDS ORDERED: cefTRIAXone 1GM/50ML D5W 50 ML IV ONE (03:45)
[2022-12-09 05:46] LABS: Basophils # (auto) 0.1 10 ^3/uL (0-0.2); Basophils % (auto) 0.9 % (0.0-2.0); Eosinophils # (auto) 0.1 10 ^3/uL (0-0.8); Eosinophils % (auto) 0.5 % (0.0-7.0); Hematocrit 47.7 % (41.0-53.0); Hemoglobin 15.9 g/dL (13.5-17.5); Lymphocytes # (auto) 1.5 10 ^3/uL (0.4-5.4); Lymphocytes % (auto) 12.9 % (10.0-50.0); Mean Corpuscular Hemoglobin 30.7 pg (28.0-32.0); Mean Corpuscular Hgb Conc. 33.4 g/dL (32.0-36.0); Mean Corpuscular Volume 91.9 fL (80.0-100.0); Monocytes # (auto) 0.7 10 ^3/uL (0-1.3); Monocytes % (auto) 5.9 % (0.0-12.0); Neutrophils % (auto) 79.8 % (37.0-80.0); Nucleated Red Blood Cells % 0.2 %; Red Blood Cells 5.19 10^6/uL (4.5-5.90); Red Cell Distribution Width 13.8 % (11.8-14.3); White Blood Cell 11.3 10^3/uL (4.4-10.8)
[2022-12-09 05:54] LABS: Albumin 3.3 g/dL (3.4-5.0); Calcium 8.7 mg/dL (8.5-10.1); Potassium 4.2 mmol/L (3.5-5.1)
[2022-12-09 05:59] LABS: BUN/Creatinine Ratio 21.6 (10.0-20.0); Bilirubin, Total 0.7 mg/dL (0.2-1.0); Total Protein 6.7 g/dL (6.4-8.2)
[2022-12-09 07:02] LABS: Urine Bacteria NONE SEEN /hpf (None Seen); Urine Blood Negative /uL (Negative); Urine Clarity Clear (Clear); Urine Color Yellow (Yellow); Urine Hyaline Cast MANY /lpf (0 - 2); Urine Mucus FEW (None Seen); Urine Protein, UAD 1+ (Negative); Urine Specific Gravity 1.027 (1.001-1.035); Urine Urobilinogen Normal (Negative); Urine WBC 3 /hpf (0 - 3)
[2022-12-09 08:35] VITALS: PULSE 67; RESP 20; O2SAT 95
[2022-12-09] MEDS ORDERED: DONE1TAB88 PO (08:56)
[2022-12-09] MEDS ORDERED: BUSP10TA31 PO (08:56)
[2022-12-09] MEDS ORDERED: TRAZ-228 PO (08:56)
[2022-12-09] MEDS ORDERED: MELATONIN (08:56)
[2022-12-09] MEDS ORDERED: TAMS0.4C36 PO (08:56)
[2022-12-09] MEDS ORDERED: BUSP5TAB51 PO (08:56)
[2022-12-09] MEDS ORDERED: LISI10TA34 PO (08:56)
[2022-12-09] MEDS: FAMOTIDINE (10MG/ML) 2ML VL IV SCH (09:34)
[2022-12-09 14:08] LABS: INR 3.98 (0.9-1.15); Partial Thromboplastin Time 42.9 SEC (24.5-34.5); Prothrombin Time 38.2 sec (9.3-11.8)
[2022-12-09 17:08] LABS: Urine Protein/Creatinine Ratio 0.13
[2022-12-09] MEDS ORDERED: HALOPERIDOL LACTATE 5 MG/ML INJ VIAL IV PRN (17:30)
[2022-12-09] MEDS: HALOPERIDOL LACTATE 5 MG/ML INJ VIAL IM PRN (17:58)
[2022-12-09 19:32] VITALS: PULSE 62; RESP 21; O2SAT 96
[2022-12-09] MEDS: ATORVASTATIN 20 MG TAB PO SCH (22:00)
[2022-12-09] MEDS: CARVEDILOL 3.125 MG TAB PO SCH (22:00)
[2022-12-09] MEDS: VENLAFAXINE HCL 37.5MG TABLET PO SCH (22:00)
[2022-12-10] MEDS: FAMOTIDINE (10MG/ML) 2ML VL IV SCH ×2 (00:26→10:14)
[2022-12-10] MEDS: ATORVASTATIN 20 MG TAB PO SCH (00:26)
[2022-12-10] MEDS: VENLAFAXINE HCL 37.5MG TABLET PO SCH (00:26)
[2022-12-10 05:50] LABS: Albumin 3.3 g/dL (3.4-5.0); Calcium 8.4 mg/dL (8.5-10.1); Potassium 4.4 mmol/L (3.5-5.1)
[2022-12-10 05:54] LABS: BUN/Creatinine Ratio 23.6 (10.0-20.0); Bilirubin, Total 0.9 mg/dL (0.2-1.0); Total Protein 6.6 g/dL (6.4-8.2)
[2022-12-10 05:59] LABS: Basophils # (auto) 0.1 10 ^3/uL (0-0.2); Basophils % (auto) 0.8 % (0.0-2.0); Eosinophils # (auto) 0.1 10 ^3/uL (0-0.8); Eosinophils % (auto) 1.5 % (0.0-7.0); Hematocrit 45.5 % (41.0-53.0); Hemoglobin 15.8 g/dL (13.5-17.5); Lymphocytes # (auto) 1.3 10 ^3/uL (0.4-5.4); Lymphocytes % (auto) 18.9 % (10.0-50.0); Mean Corpuscular Hemoglobin 31.6 pg (28.0-32.0); Mean Corpuscular Hgb Conc. 34.6 g/dL (32.0-36.0); Mean Corpuscular Volume 91.3 fL (80.0-100.0); Monocytes # (auto) 0.6 10 ^3/uL (0-1.3); Monocytes % (auto) 8.9 % (0.0-12.0); Neutrophils # (auto) 4.9 10 ^3/uL (1.6-8.6); Neutrophils % (auto) 69.9 % (37.0-80.0); Nucleated Red Blood Cells % 0.8 %; Red Blood Cells 4.99 10^6/uL (4.5-5.90); Red Cell Distribution Width 13.6 % (11.8-14.3)
[2022-12-10 06:04] LABS: INR 2.49 (0.9-1.15); Partial Thromboplastin Time 39.2 SEC (24.5-34.5); Prothrombin Time 24.6 sec (9.3-11.8)
[2022-12-10] MEDS: busPIRone HCL 10 MG TAB PO SCH (07:03)
[2022-12-10 07:52] VITALS: PULSE 70; RESP 16; O2SAT 97
[2022-12-10] MEDS: cefTRIAXone 1GM/50ML D5W 50 ML IV SCH (09:33)
[2022-12-10] MEDS: CARVEDILOL 3.125 MG TAB PO SCH ×2 (10:00→22:00)
[2022-12-10] MEDS: TAMSULOSIN HYDROCHLORIDE 0.4 MG CAP PO SCH (10:14)
[2022-12-10] MEDS: LISINOPRIL 10 MG TAB PO SCH (10:14)
[2022-12-10] MEDS: SODIUM CHLORIDE 0.9% 1,000 ML IV SCH (10:20)
[2022-12-10] MEDS: HALOPERIDOL LACTATE 5 MG/ML INJ VIAL IM PRN ×2 (12:37→15:49)
[2022-12-10] MEDS: LORazepam 2MG/ML-1ML VIAL IV PRN ×2 (13:04→20:48)
[2022-12-10] MEDS ORDERED: WARFARIN SODIUM 1 MG TAB PO ONE (17:00)
[2022-12-10 19:25] VITALS: PULSE 115; RESP 13; O2SAT 95
[2022-12-10 22:00] VITALS: BP 111/65; PULSE 111; RESP 16; TEMP 98.1; O2SAT 93
[2022-12-10] MEDS ORDERED: ATORVASTATIN 20 MG TAB PO SCH (22:00)
[2022-12-10] MEDS ORDERED: MELATONIN 5 MG TAB PO SCH (22:00)
[2022-12-10] MEDS ORDERED: busPIRone HCL 10 MG TAB PO SCH (22:00)
[2022-12-10] MEDS ORDERED: traZODone HCL 50 MG TAB PO SCH (22:00)
[2022-12-10] MEDS ORDERED: DONEPEZIL HYDROCHLORIDE 5 MG TAB PO SCH (22:00)
[2022-12-11 05:00] VITALS: BP 83/59; PULSE 89; RESP 18; TEMP 98.1; O2SAT 95
[2022-12-11] MEDS: busPIRone HCL 10 MG TAB PO SCH (07:00)
[2022-12-11 08:00] VITALS: PULSE 52; RESP 16; O2SAT 98
[2022-12-11 08:34] LABS: BUN/Creatinine Ratio 18.9 (10.0-20.0); Calcium 8.2 mg/dL (8.7-10.4); Potassium 4.9 mmol/L (3.5-5.1)
[2022-12-11] MEDS: cefTRIAXone 1GM/50ML D5W 50 ML IV SCH (09:09)
[2022-12-11] MEDS: TAMSULOSIN HYDROCHLORIDE 0.4 MG CAP PO SCH (09:09)
[2022-12-11] MEDS: LISINOPRIL 10 MG TAB PO SCH (09:10)
[2022-12-11] MEDS: CARVEDILOL 3.125 MG TAB PO SCH (09:11)
[2022-12-11] MEDS ORDERED: PANTOPRAZOLE 40 MG TAB PO SCH (10:00)
[2022-12-11 10:49] LABS: Basophils # (auto) 0 10 ^3/uL (0-0.2); Basophils % (auto) 0.4 % (0.0-2.0); Eosinophils # (auto) 0.1 10 ^3/uL (0-0.8); Eosinophils % (auto) 1.4 % (0.0-7.0); Hematocrit 45.3 % (41.0-53.0); Hemoglobin 15.2 g/dL (13.5-17.5); Lymphocytes # (auto) 0.8 10 ^3/uL (0.4-5.4); Lymphocytes % (auto) 14.6 % (10.0-50.0); Mean Corpuscular Hemoglobin 31.4 pg (28.0-32.0); Mean Corpuscular Hgb Conc. 33.6 g/dL (32.0-36.0); Mean Corpuscular Volume 93.4 fL (80.0-100.0); Monocytes # (auto) 0.4 10 ^3/uL (0-1.3); Monocytes % (auto) 7.6 % (0.0-12.0); Nucleated Red Blood Cells % 0.1 %; Red Blood Cells 4.85 10^6/uL (4.5-5.90); Red Cell Distribution Width 13.6 % (11.8-14.3); White Blood Cell 5.3 10^3/uL (4.4-10.8)
[2022-12-11 11:28] LABS: INR 1.78 (0.9-1.15)
[2022-12-11 12:30] VITALS: BP 122/62; PULSE 60; RESP 19; TEMP 97.4; O2SAT 97
[2022-12-11] MEDS ORDERED: WARFARIN SODIUM 5 MG TAB PO ONE (17:00)
== END 2022-12-11 15:27 | disposition home or self-care (01) | DRG 312 ==
LOC: ER 20:46 → EDBD 20:46 → TELE 12-09 01:12 → TELE-WESTW 12-10 21:45
PROVIDERS: ADMIT Nurse Practitioner Family; ATTEND Internal Medicine
DX: I95.2 Hypotension due to drugs (principal); G93.41 Metabolic encephalopathy; N17.0 Acute kidney failure with tubular necrosis; D68.9 Coagulation defect, unspecified; F03.94 Unspecified dementia, unspecified severity, with anxiety; N18.9 Chronic kidney disease, unspecified; I25.10 Atherosclerotic heart disease of native coronary artery without angina pectoris; D72.829 Elevated white blood cell count, unspecified; E78.5 Hyperlipidemia, unspecified; I12.9 Hypertensive chronic kidney disease with stage 1 through stage 4 chronic kidney disease, or unspecified chronic kidney disease; N40.0 Benign prostatic hyperplasia without lower urinary tract symptoms
CPT/HCPCS: 36415; 70450; 71045; 76775; 80048; 80053; 81001; 82570; 83605; 83735; 83880; 84156; 84300; 84484; 85025; 85379; 85610; 85730; 87040; 87081; 87086; 93005; 96365; G0378; J0696; J3490